=== PATIENT | male | born 1980 | race Caucasian/White ===

== ENCOUNTER 2017-02-09 19:04 | Emergency (ER) | payer BC, OTHER ==
[2017-02-09 20:00] VITALS: BP 152/66
[2017-02-09] MEDS ORDERED: DOXYcycline CAP(*) 100 MG PO ONE (20:53)
--- NOTE | 2017-02-09 20:57 | UC ---
Skin Complaint HPI - HPI Summary HPI Summary: Noticed tick on the back of L thigh this morning after returning from hunting. Has not removed it yet. Denies pain or itching at the area. - History of Current Complaint Chief Complaint: [facility] Time Seen by Provider: 02/09/17 20:32 Stated Complaint: TICK Hx Obtained From: Patient Skin Exposure Onset/Duration: Days Ago Timing: Constant Onset Severity: Mild Current Severity: Mild Location: Discrete Aggravating Factor(s): Nothing Alleviating Factor(s): Nothing Associated Signs & Symptoms: Positive: Negative Related History: Insect Bite/Sting - Allergy/Home Medications Home Medications: Home Medications Atorvastatin* [Lipitor 10 MG*] 10 mg PO DAILY 02/09/17 [History Confirmed ] Omeprazole CAP* [Prilosec CAP* 20 MG] 20 mg PO DAILY 02/09/17 [History Confirmed 02/09/17] Review of Systems Constitutional: Negative Skin: Other - tick Eyes: Negative ENT: Negative Respiratory: Negative Cardiovascular: Negative Gastrointestinal: Negative Genitourinary: Negative Motor: Negative Neurovascular: Negative Musculoskeletal: Negative Neurological: Negative Psychological: Negative Is Patient Immunocompromised?: No All Other Systems Reviewed And Are Negative: Yes PMH/Surg Hx/FS Hx/Imm Hx Endocrine History: Dyslipidemia GI/ History: Gastroesophageal Reflux - Surgical History Surgical History: Yes Surgery Procedure, Year, and Place: RIGHT KNEE SX X 2 - Family History Known Family History: Positive: Hypertension - Social History Occupation: Employed Full-time Lives: With Family Alcohol Use: Occasionally Substance Use Type: None Smoking Status (MU): Current Some Day Smoker Type: Cigars Length of Time of Smoking/Using Tobacco: 24 YRS Physical Exam Triage Information Reviewed: Yes Appearance: Well-Appearing, No Pain Distress, Well-Nourished Vital Signs: Initial Vital Signs Temp 98.3 F 02/09/17 19:53 Pulse 78 02/09/17 19:53 Resp 15 02/09/17 19:53 BP 152/66 02/09/17 19:53 Pulse Ox 99 02/09/17 19:53 Vital Signs Reviewed: Yes Eye Exam: Normal Eyes: Positive: Conjunctiva Clear ENT Exam: Normal ENT: Positive: Normal ENT inspection, Hearing grossly normal, Pharynx normal, TM dull Neck exam: Normal Respiratory Exam: Normal Respiratory: Positive: Chest non-tender, Lungs clear, Normal breath sounds, No respiratory distress, No accessory muscle use Cardiovascular Exam: Normal Cardiovascular: Positive: RRR, No Murmur Musculoskeletal Exam: Normal Neurological Exam: Normal Neurological: Positive: Alert Psychological Exam: Normal Skin Exam: Other - tick removed from L thigh with tick twister, tick was alive and whole, appeared engorged. Pt lilo well. No erythema, drainage, or streaking from the area. Course/Dx - Diagnoses Provider Diagnoses: Tick bite L thigh Discharge - Discharge Plan Condition: Stable Disposition: HOME Patient Education Materials: Tick Bite (ED) Referrals: Kasie Warren MD [Primary Care Provider] - Additional Instructions: If you develop any of the following, please see your physician promptly: (1) Fever, chills, or generalized malaise associated with a headache. (2) A red round area at the site of the bite (or elsewhere) (3) Joint pain, joint swelling or generalized weakness. (4) Redness, swelling, or drainage at the site of the bite. Check yourself, your children and your pets for ticks whenever you've been in an area where ticks live. To remove a tick, grasp it firmly with some tweezers or a string in a slipknot as close to its head as possible and pull it steadily. Ticks do not have a typical "head" attached to their body. There are mouth parts sticking out which they use to feed. If there are mouth parts left behind in the wound there is NO increased risk of Lyme infection; however, the chances of a bacterial skin infection (cellulitis) are higher. If mouth parts remain after tick removal, the best thing to do is apply warm soaks to the area 3-4 times per day to encourage the skin to expel the foreign material. DOXYCYCLINE: Doxycycline (Vibramycin, Doryx) is an antibiotic of the tetracycline family. This type of drug is useful for infections of the respiratory tract and genital tract, and is sometimes used for intestinal infections. Unlike most tetracyclines, doxycycline can be taken with food. It is longer acting, and (usually) less prone to side effects than regular tetracycline. Tetracycline antibiotics can stain immature teeth and SHOULD NOT BE TAKEN BY CHILDREN, NURSING MOTHERS, OR WOMEN. Tetracyclines can make you more prone to sunburn. Abdominal cramping, nausea, and diarrhea are occasional side effects. Women may experience vaginal yeast infections. Call the doctor at once if you develop hives, itching, shortness of breath , or lightheadedness. WHEN A TICK IS NOT ENGORGED AND HAS BEEN ON LESS THAN 24 HOURS - THE RISK FOR LYME IS NEGLIGIBLE. YOU CAN REMOVE THE TICK AND OBSERVE THE AREA ON YOUR OWN. FOLLOW-UP CARE: You should contact your private physician for follow-up care if you develop spreading redness near the site of the bite or on any other areas of the body. If you are unable to get a timely appointment, or if you are worsening, call us or return for re-evaluation.
== END 2017-02-09 21:02 | disposition home or self-care (01) ==
LOC: UCCORT 19:04
DX: S70.362A Insect bite (nonvenomous), left thigh, initial encounter (principal); W57.XXXA Bitten or stung by nonvenomous insect and other nonvenomous arthropods, initial encounter; Y93.89 Activity, other specified; Y92.821 Forest as the place of occurrence of the external cause; E78.5 Hyperlipidemia, unspecified; K21.9 Gastro-esophageal reflux disease without esophagitis; Z72.0 Tobacco use
CPT/HCPCS: 99212; A9270-GY; G0463

== ENCOUNTER 2017-10-05 16:35 | Emergency (ER) | payer BC, OTHER ==
--- OUTSIDE RECORDS SUMMARY | 2017-10-05 18:04 | XMS REPORT ---
:1980 External Reference #:[id number] Author Organization [facility] Address [address], [address] [place] [address] Phone [phone] Care Team Providers Name Role Phone Kasie Warren MD Primary Care Physician Unavailable Payers Type Date Identification Numbers Payment Provider Subscriber Commercial Policy Number: [id number] [facility] Freddie Rushing PayID: [id number] [address] [place] [address] Problems Date Description Provider Status Onset: 07/12/2014 Benign essential hypertension Alma Rosa Meadows M.D. Active Onset: 07/12/2014 Heartburn Alma Rosa Meadows M.D. Active Onset: 07/26/2014 Localized, primary osteoarthritis Kem Agudelo M.D. Active Onset: 12/21/2014 Mixed hyperlipidemia Alma Rosa Meadows M.D. Active Onset: 06/15/2017 Tobacco user Kasie Warren MD Active Onset: 06/15/2017 Obesity Kasie Warren MD Active Onset: 05/05/2017 Acute upper respiratory infection, Kasie Warren MD Active unspecified Onset: 07/12/2014 Arthralgia of the lower leg Alma Rosa Meadows M.D. Inactive Inactive: 02/12/2017 Onset: 07/12/2014 Obstructive sleep apnea syndrome Alma Rosa Meadows M.D. Inactive Inactive: 02/12/2017 Onset: 12/21/2014 Essential hypertension Alma Rosa Meadows M.D. Inactive Inactive: 02/12/2017 Onset: 01/04/2015 Essential hypertension Alma Rosa Meadows M.D. Inactive Inactive: 02/12/2017 Family History Date Family Member(s) Problem(s) Comments Father due to Cancer () Mother Cancer Social History Type Date Description Comments Marital Status Lives With Diet Patient follows no dietary restrictions Occupation Sales Occupation Academic Support Specialist Work Status Currently Working Cigarette Use 2013 Quit ETOH Use Currently consumes alcohol socially Smoking Patient is a former smoker cigars- end date Cigarettes- end date 2013 Recreational Drug Use Denies Drug Use Daily Caffeine Current Caffeine User Condom Use Never STD's No STD History Allergies, Adverse Reactions, Alerts Date Description Reaction Status Severity Comments 06/15/2017 Tamiflu active Rash on face 07/04/2014 NKDA inactive Medications Medication Date Status Form Strength Qnty SIG Indications Ordering Provider Fenofibrate 06/15/ Active Capsules 67mg 30caps 1 tab by Kasie Micronized 2017 mouth every Kelvin, day Amlodipine 02/11/ Active Tablets 5mg 30tabs 1 by mouth Kasie Besylate 2016 every day MD Kelvin Lactase Enzyme 01/16/ Active Tablets 9000Unit 90tabs 1 tab by Kasie Fast Acting 2015 mouth three Kelvin, times a day as needed with dairy containing meals Omeprazole 12/25/ Active Capsules 40mg 30caps 1 by mouth Kasie 2015 DR every day MD Kelvin Chantix 08/13/ Hx Tablets 1mg 60tabs 1 tab by Kasie 2017 - mouth twice Kelvin, 09/23/ a day 2018 Chantix 06/15/ Hx Tablets 0.5mg X 11 60tabs 0.5 mg once Kasie Starting 2017 - & 1 mg X daily days Earnest Warren 1-3, 0.5mg 2017 twice daily days 4-7, 1mg twice daily on day 8 Benzonatate 05/07/ Hx Capsules 100mg 30caps 1 tab by Kasie 2017 - mouth every Kelvin, 8 hours for 2017 cough Oseltamivir 05/05/ Hx Capsules 75mg 10caps 1 tab twice Kasie Phosphate 2017 - a day x 5 Kelvin, 06/15/ days 2017 Chantix 02/11/ Hx Tablets 0.5mg X 11 60tabs 0.5 mg once Kasie Starting 2016 - & 1 mg X daily days Kelvin, Earnest 1-3, 0.5mg MD 2017 twice daily days 4-7, 1mg twice daily on day 8 Terbinafine 08/27/ Hx Tablets 250mg 30tabs 1 tab by Kasie HCL 2017 - mouth daily Kelvin, 11/16/ for 4 2016 weeks. Fluconazole 08/14/ Hx Tablets 150mg 4tabs 1 tab by Kasie 2016 - mouth once Kelvin, 08/18/ weekly for MD 2016 4 weeks Terbinafine 08/11/ Hx Tablets 250mg 14tabs 1 tab by Kasie HCL 2017 - mouth daily Kelvin, 08/14/ for 2 2016 weeks. Probiotic 12/25/ Hx Capsules 30caps 1 tab by Kasie Acidophilus 2015 - mouth daily Kelvin, 01/16/ 2015 Levaquin 10/30/ Hx Tablets 500mg 7tabs 1 tab by Kasie 2015 - mouth daily Kelvin, 12/25/ for 7 days 2015 Mucinex DM 10/30/ Hx Tablets ER 30-600mg 30tabs 1 tab every Kasie 2016 - 12HR 12 hours as Kelvin, 12/25/ needed for MD 2016 cough/conge stion Ventolin HFA 10/30/ Hx Aerosol 108(90Base 8gm 1-2 puffs Kasie 2015 ) mcg/Act every 4-6 Kelvin, hours as MD needed for cough and shortness of breath Esomeprazole 07/26/ Hx Capsules 40mg 30caps take one R12 Kasie Magnesium 2014 - DR tab by Kelvin, 12/25/ mouth daily MD 2015 Atorvastatin 07/19/ Hx Tablets 20mg 30tabs 1 by mouth E78.2 Kasie Calcium 2014 - every day Kelvin, 06/15/ 2017 Nexium 07/12/ Hx Capsules 40mg 30caps 1 by mouth 787.1 Alma Rosa Faith - every day Dori 07/26/ Julieta 2014 No Active 07/04/ Hx Unknown Medications 2014 - 2014 Garcinia / Hx Tablets 500-200mg- Unknown Cambogia-Chrom 0000 - mcg ium 2015 Vital Signs Date Vital Result Comment 09/23/2017 BP Systolic Sitting Right Arm 123 mmHg BP Diastolic Sitting Right Arm 81 mmHg Body Temperature 98.1 F Heart Rate 68 /min Respiratory Rate 16 /min Height 73 inches 6'1" Weight 254.00 lb BMI (Body Mass Index) 33.5 kg/m2 BSA (Body Surface Area) 2.38 m2 [place] body weight in kilograms 83 O2 % BldC Oximetry 96 % 06/15/2017 BP Systolic Sitting Right Arm 130 mmHg BP Diastolic Sitting Right Arm 84 mmHg Heart Rate 94 /min Respiratory Rate 12 /min Height 73 inches 6'1" Weight 265.00 lb BMI (Body Mass Index) 35.0 kg/m2 BSA (Body Surface Area) 2.42 m2 [place] body weight in kilograms 83 05/05/2017 BP Systolic 156 mmHg BP Diastolic 85 mmHg Body Temperature 99.7 F Heart Rate 102 /min Respiratory Rate 14 /min Height 73 inches 6'1" Weight 259.25 lb BMI (Body Mass Index) 34.2 kg/m2 BSA (Body Surface Area) 2.40 m2 [place] body weight in kilograms 83 O2 % BldC Oximetry 95 % 02/11/2017 BP Systolic Sitting Right Arm 156 mmHg 144/86 recheck BP Diastolic Sitting Right Arm 92 mmHg 144/86 recheck Heart Rate 90 /min Respiratory Rate 18 /min Height 73 inches 6'1" Weight 255.00 lb BMI (Body Mass Index) 33.6 kg/m2 BSA (Body Surface Area) 2.39 m2 [place] body weight in kilograms 83 08/11/2016 BP Systolic 140 mmHg BP Diastolic 84 mmHg Heart Rate 76 /min Height 73 inches 6'1" Weight 247.00 lb BMI (Body Mass Index) 32.6 kg/m2 BSA (Body Surface Area) 2.35 m2 [place] body weight in kilograms 83 01/17/2016 BP Systolic Sitting Right Arm 128 mmHg BP Diastolic Sitting Right Arm 74 mmHg Height 73 inches 6'1" Weight 234.00 lb BMI (Body Mass Index) 30.9 kg/m2 BSA (Body Surface Area) 2.30 m2 12/26/2015 BP Systolic Lying Down Resting Right Arm 138 mmHg BP Diastolic Lying Down Resting Right Arm 82 mmHg Height 73 inches 6'1" Weight 237.12 lb BMI (Body Mass Index) 31.3 kg/m2 BSA (Body Surface Area) 2.31 m2 [place] body weight in kilograms 83 10/31/2015 BP Systolic 142 mmHg BP Diastolic 80 mmHg Body Temperature 99.6 F Heart Rate 86 /min Respiratory Rate 16 /min Height 73 inches 6'1" Weight 236.00 lb With Shoes BMI (Body Mass Index) 31.1 kg/m2 BSA (Body Surface Area) 2.31 m2 O2 % BldC Oximetry 97 % 08/23/2015 BP Systolic Sitting Resting Right Arm 142 mmHg BP Diastolic Sitting Resting Right Arm 90 mmHg Heart Rate 68 /min Height 73 inches 6'1" Weight 243.00 lb BMI (Body Mass Index) 32.1 kg/m2 BSA (Body Surface Area) 2.34 m2 01/04/2015 BP Systolic 132 mmHg BP Diastolic 72 mmHg Heart Rate 82 /min Respiratory Rate 18 /min Height 73 inches 6'1" Weight 240.00 lb BMI (Body Mass Index) 31.7 kg/m2 BSA (Body Surface Area) 2.32 m2 O2 % BldC Oximetry 97 % Ra 12/21/2014 BP Systolic 154 mmHg BP Diastolic 90 mmHg Height 73 inches 6'1" Weight 237.25 lb BMI (Body Mass Index) 31.3 kg/m2 BSA (Body Surface Area) 2.31 m2 07/26/2014 Height 73 inches 6'1" Weight 238.00 lb BMI (Body Mass Index) 31.4 kg/m2 BSA (Body Surface Area) 2.32 m2 07/12/2014 Heart Rate 71 /min Respiratory Rate 20 /min Height 73 inches 6'1" Weight 237.00 lb BMI (Body Mass Index) 31.3 kg/m2 BSA (Body Surface Area) 2.31 m2 O2 % BldC Oximetry 98 % Pain Level 0 Results Test Date Test Result H/L Range Note Comprehensive Metabolic Panel 09/16/2017 Glucose 106 mg/dL 74-106 1 BUN 21 mg/dL High 7-18 1 Creatinine 1.2 mg/dL 0.6-1.3 1 Glom Filtration Rate, Estimate >60 mL/min >60 1 If >60 mL/min >60 1, 2 BUN/Creat 17.5 ratio 1 Sodium 144 mmol/L 136-145 1 Potassium 5.0 mmol/L 3.5-5.1 1 Chloride 108 mmol/L High 98-107 1 Carbon Dioxide 26 mmol/L 21-32 1 Anion Gap 10 mEq/L 8-16 1 Calcium 9.2 mg/dL 8.5-10.1 1 Total Protein 7.2 g/dL 6.4-8.2 1 Albumin 4.1 g/dL 3.4-5.0 1 Globulin 3.1 g/dL 1.9-4.3 1 Alb/Glob 1.3 ratio 1 Bilirubin,Total 0.4 mg/dL 0.2-1.0 1 Sgot/Ast 21 U/L 15-37 1 SGPT/Alt 35 U/L 12-78 1 Alkaline Phosphatase 60 U/L 45-117 1 LDL Cholesterol Profile 09/16/2017 Cholesterol 185 mg/dL <200 1, 3 Triglycerides 204 mg/dL High <150 1, 4 HDL Cholesterol 36 mg/dL Low >40 1, 5 LDL-Cholesterol 108 mg/dL < 100 1, 6 Glycohemoglobin A1c 09/16/2017 Glycohemoglobin (A1c) 6.2 % 4.2-6.3 1, 7 eAG 131 mg/dL 1 Comprehensive Metabolic Panel 05/15/2017 Glucose 106 mg/dL 74-106 8 BUN 18 mg/dL 7-18 8 Creatinine 0.9 mg/dL 0.6-1.3 8 Glom Filtration Rate, Estimate >60 mL/min >60 8 If >60 mL/min >60 8, 9 BUN/Creat 20.0 ratio 8 Sodium 142 mmol/L 136-145 8 Potassium 4.4 mmol/L 3.5-5.1 8 Chloride 107 mmol/L 98-107 8 Carbon Dioxide 27 mmol/L 21-32 8 Anion Gap 8 mEq/L 8-16 8 Calcium 9.6 mg/dL 8.5-10.1 8 Total Protein 7.3 g/dL 6.4-8.2 8 Albumin 4.1 g/dL 3.4-5.0 8 Globulin 3.2 g/dL 1.9-4.3 8 Alb/Glob 1.3 ratio 8 Bilirubin,Total 0.4 mg/dL 0.2-1.0 8 Sgot/Ast 25 U/L 15-37 8 SGPT/Alt 55 U/L 12-78 8 Alkaline Phosphatase 76 U/L 45-117 8 CBS W/Automated Diff 05/15/2017 White Blood Count 6.3 K/uL 3.4-10.5 8 Red Blood Count 5.04 M/uL 4.20-5.80 8 Hemoglobin 15.6 gm/dL 12.8-17.0 8 Hematocrit 43.7 % 38.0-48.0 8 Mean Cell Volume 86.7 fl 80.0-96.0 8 Mean Corpuscular HGB 31.0 pg 27.0-33.0 8 Mean Corpuscular HGB Conc 35.7 g/dL 31.7-36.0 8 Platelet Count 217 K/uL 155-360 8 Red Cell Distri Width SD 37.6 fl 36-51 8 Red Cell Distri Width %CV 12.1 % 11.6-15.8 8 Mean Platelet Volume 11.0 fL High 6.6-10.6 8 Neut% 61.4 % 33.0-73.0 8 Lymph % 28.5 % 20.0-42.0 8 [place] % 8.5 % 0.0-10.0 8 Eo% 1.4 % 0.0-6.6 8 Bas% 0.2 % 0.0-1.1 8 Neut# 3.89 K/uL 1.8-7.0 8 Lymph # 1.81 K/uL 1.0-4.0 8 [place] # 0.54 K/uL 0.0-0.8 8 Eos # 0.09 K/uL 0.0-0.5 8 Baso # 0.01 K/uL 0.0-0.1 8 Glycohemoglobin A1c 05/15/2017 Glycohemoglobin (A1c) 6.1 % 4.2-6.3 8, 10 eAG 128 mg/dL 8 LDL Cholesterol Profile 05/15/2017 Cholesterol 152 mg/dL <200 8, 11 Triglycerides 413 mg/dL High <150 8, 12 HDL Cholesterol 35 mg/dL Low >40 8, 13 LDL-Cholesterol TNP mg/dL < 100 8, 14 Laboratory test finding 05/15/2017 Slide Review (SEE NOTE) 8, 15 Influenza A/B Antigen 05/05/2017 Influenza A Antigen Negative (Negative) 16 Influenza B Antigen Negative (Negative) 16, 17 Comprehensive Metabolic Panel 02/03/2017 Glucose 93 mg/dL 74-106 18 BUN 14 mg/dL 7-18 18 Creatinine 0.9 mg/dL 0.6-1.3 18 Glom Filtration Rate, Estimate >60 mL/min >60 18 If >60 mL/min >60 18, 19 BUN/Creat 15.5 ratio 18 Sodium 140 mmol/L 136-145 18 Potassium 4.0 mmol/L 3.5-5.1 18 Chloride 105 mmol/L 98-107 18 Carbon Dioxide 27 mmol/L 21-32 18 Anion Gap 8 mEq/L 8-16 18 Calcium 9.5 mg/dL 8.5-10.1 18 Total Protein 7.8 g/dL 6.4-8.2 18 Albumin 4.4 g/dL 3.4-5.0 18 Globulin 3.4 g/dL 1.9-4.3 18 Alb/Glob 1.3 ratio 18 Bilirubin,Total 0.3 mg/dL 0.2-1.0 18 Sgot/Ast 16 U/L 15-37 18 SGPT/Alt 49 U/L 12-78 18 Alkaline Phosphatase 84 U/L 45-117 18 LDL Cholesterol Profile 02/03/2017 Cholesterol 167 mg/dL <200 18, 20 Triglycerides 332 mg/dL High <150 18, 21 HDL Cholesterol 44 mg/dL >40 18, 22 LDL-Cholesterol 57 mg/dL < 100 18, 23 Laboratory test finding 07/18/2016 Slide Review (SEE NOTE) 24, 25 LDL Cholesterol Profile 07/18/2016 Cholesterol 147 mg/dL <200 24, 26 Triglycerides 168 mg/dL High <150 24, 27 HDL Cholesterol 43 mg/dL >40 24, 28 LDL-Cholesterol 70 mg/dL < 100 24, 29 CBS W/Automated Diff 07/18/2016 White Blood Count 6.1 K/uL 3.4-10.5 24 Red Blood Count 5.12 M/uL 4.20-5.80 24 Hemoglobin 15.6 gm/dL 12.8-17.0 24 Hematocrit 46.1 % 38.0-48.0 24 Mean Cell Volume 90.0 fl 80.0-96.0 24 Mean Corpuscular HGB 30.5 pg 27.0-33.0 24 Mean Corpuscular HGB Conc 33.8 g/dL 31.7-36.0 24 Platelet Count 191 K/uL 150-400 24 Red Cell Distri Width SD 41.3 fl 36-51 24 Red Cell Distri Width %CV 12.9 % 11.6-15.8 24 Mean Platelet Volume 11.1 fL High 6.6-10.6 24 Neut% 53.4 % 33.0-73.0 24 Lymph % 33.4 % 20.0-42.0 24 [place] % 9.4 % 0.0-10.0 24 Eo% 3.6 % 0.0-6.6 24 Bas% 0.2 % 0.0-1.1 24 Neut# 3.28 K/uL 1.8-7.0 24 Lymph # 2.05 K/uL 1.0-4.0 24 [place] # 0.58 K/uL 0.0-0.8 24 Eos # 0.22 K/uL 0.0-0.5 24 Baso # 0.01 K/uL 0.0-0.1 24 Comprehensive Metabolic Panel 07/18/2016 Glucose 105 mg/dL 74-106 24 BUN 14 mg/dL 7-18 24 Creatinine 1.0 mg/dL 0.6-1.3 24 Glom Filtration Rate, Estimate >60 mL/min >60 24 If >60 mL/min >60 24, 30 BUN/Creat 14.0 ratio 24 Sodium 142 mmol/L 136-145 24 Potassium 4.1 mmol/L 3.5-5.1 24 Chloride 108 mmol/L High 98-107 24 Carbon Dioxide 28 mmol/L 21-32 24 Anion Gap 6 mEq/L Low 8-16 24 Calcium 8.8 mg/dL 8.5-10.1 24 Total Protein 7.1 g/dL 6.4-8.2 24 Albumin 4.0 g/dL 3.4-5.0 24 Globulin 3.1 g/dL 1.9-4.3 24 Alb/Glob 1.3 ratio 24 Bilirubin,Total 0.4 mg/dL 0.2-1.0 24 Sgot/Ast 20 U/L 15-37 24 SGPT/Alt 48 U/L 12-78 24 Alkaline Phosphatase 77 U/L 45-117 24 Comprehensive Metabolic Panel 12/21/2015 Glucose 90 mg/dL 74-106 31 BUN 13 mg/dL 7-18 31 Creatinine 1.1 mg/dL 0.6-1.3 31 Glom Filtration Rate, Estimate >60 mL/min >60 31 If >60 mL/min >60 31, 32 BUN/Creat 11.8 ratio 31 Sodium 143 mmol/L 136-145 31 Potassium 3.9 mmol/L 3.5-5.1 31 Chloride 107 mmol/L 98-107 31 Carbon Dioxide 30 mmol/L 21-32 31 Anion Gap 6 mEq/L Low 8-16 31 Calcium 8.6 mg/dL 8.5-10.1 31 Total Protein 7.2 g/dL 6.4-8.2 31 Albumin 3.8 g/dL 3.4-5.0 31 Globulin 3.4 g/dL 1.9-4.3 31 Alb/Glob 1.1 ratio 31 Bilirubin,Total 0.3 mg/dL 0.2-1.0 31 Sgot/Ast 18 U/L 15-37 31 SGPT/Alt 44 U/L 12-78 31 Alkaline Phosphatase 70 U/L 45-117 31 Is Patient Fasting? Non-Fasting 31 LDL Cholesterol Profile 12/21/2015 Cholesterol 147 mg/dL <200 31, 33 Triglycerides 245 mg/dL High <150 31, 34 HDL Cholesterol 41 mg/dL >40 31, 35 LDL-Cholesterol 57 mg/dL < 100 31, 36 Is Patient Fasting? Non-Fasting 31 CBC W/Automated Diff 12/21/2015 White Blood Count 7.3 K/uL 3.4-10.5 31 Red Blood Count 4.76 M/uL 4.20-5.80 31 Hemoglobin 14.6 gm/dL 12.8-17.0 31 Hematocrit 42.4 % 38.0-48.0 31 Mean Cell Volume 89.1 fl 80.0-96.0 31 Mean Corpuscular HGB 30.7 pg 27.0-33.0 31 Mean Corpuscular HGB Conc 34.4 g/dL 31.7-36.0 31 Platelet Count 190 K/uL 150-400 31 Red Cell Distri Width SD 40.1 fl 36-51 31 Red Cell Distri Width %CV 12.5 % 11.6-15.8 31 Mean Platelet Volume 10.5 fL 6.6-10.6 31 Neut% 63.0 % 33.0-73.0 31 Lymph % 23.6 % 17.0-56.0 31 [place] % 9.9 % 0.0-10.0 31 Eo% 3.2 % 0.0-5.0 31 Bas% 0.3 % 0.1-1.0 31 Neut# 4.57 K/uL 1.8-7.0 31 Lymph # 1.71 K/uL Low 1.8-7.0 31 [place] # 0.72 K/uL 0.0-0.8 31 Eos # 0.23 K/uL 0.0-0.5 31 Baso # 0.02 K/uL Low 0.1-0.2 31 Urinalysis With Microscopic 07/12/2014 Urine Color YELLOW Yellow Urine Clarity CLEAR Clear Urine Glucose - Dipstick NEGATIVE mg/dL Negative Urine Bilirubin - Dipstick NEGATIVE Negative Urine Ketone NEGATIVE mg/dL Negative Urine Specific Harper 1.025 1.010-1.030 Urine Blood NEGATIVE Negative Urine PH 6.0 Low 6.5-7.5 Urine Protein - Dipstick NEGATIVE mg/dL Negative Urine Urobilinogen - Dipstick 0.2 E.U./dL 0.2-1.0 Urine Nitrite - Dipstick NEGATIVE Negative Urine Leuk Esterase NEGATIVE Negative Urine Microscopic <pending> Urine RBC 2-5 rbc/hpf 0-2 Urine WBC 0-2 wbc/hpf 0-7 Urine Epithelial Cells VERY FEW NONESEEN/lpf Urine Bacteria VERY FEW NONESEEN Urine Mucus MODERATE NONESEEN Laboratory test finding 07/12/2014 Antibody Detection See Note 37 Hepatitis Evaluation 07/12/2014 Hepatitis A Antibody Nonreactive Nonreactive 38 IgM Hepatitis B Surface Antigen Nonreactive Nonreactive 39 Hepatitis B Core IgM Nonreactive Nonreactive 40 Hepatitis C Antibody Nonreactive Nonreactive Signal/Cutoff ratio < 0.02 <0.80 41 CBC W/Automated Diff 07/12/2014 White Blood Count 5.9 K/uL 3.4-10.5 Red Blood Count 5.05 M/uL 4.20-5.80 Hemoglobin 15.6 gm/dL 12.8-17.0 Hematocrit 44.7 % 38.0-48.0 Mean Cell Volume 88.5 fl 80.0-96.0 Mean Corpuscular HGB 30.9 pg 27.0-33.0 Mean Corpuscular HGB Conc 34.9 g/dL 31.7-36.0 Platelet Count 205 K/uL 150-400 Red Cell Distri Width SD 39.4 fl 36-51 Red Cell Distri Width %CV 12.5 % 11.6-15.8 Mean Platelet Volume 10.5 fL 6.6-10.6 Neut% 61.1 % 33.0-73.0 Lymph % 28.6 % 17.0-56.0 [place] % 8.6 % 0.0-10.0 Eo% 1.4 % 0.0-5.0 Bas% 0.3 % 0.1-1.0 Neut# 3.61 K/uL 1.8-7.0 Lymph # 1.69 K/uL Low 1.8-7.0 [place] # 0.51 K/uL 0.0-0.8 Eos # 0.08 K/uL 0.0-0.5 Baso # 0.02 K/uL Low 0.1-0.2 Laboratory test finding 07/12/2014 TSH Reflex FT4 and/or 1.30 uIU/mL 0.36 -3.74 42 FT3 LDL Cholesterol Profile 07/12/2014 Cholesterol 190 mg/dL < 200 43 Triglycerides 253 mg/dL < 150 44 HDL Cholesterol 38 mg/dL > 40 45 LDL-Cholesterol 101 mg/dL < 100 46 Comprehensive Metabolic Panel 07/12/2014 Glucose 95 mg/dL 74-106 BUN 10 mg/dL 7-18 Creatinine 1.1 mg/dL 0.6-1.3 Glom Filtration Rate, Estimate >60 mL/min >60 If >60 mL/min >60 47 BUN/Creat 9.0 ratio Sodium 141 mmol/L 136-145 Potassium 4.2 mmol/L 3.5-5.1 Chloride 106 mmol/L 98-107 Carbon Dioxide 28 mmol/L 21-32 Anion Gap 7 mEq/L Low 8-16 Calcium 10.3 mg/dL High 8.5-10.1 Total Protein 7.7 g/dL 6.4-8.2 Albumin 4.2 g/dL 3.4-5.0 Globulin 3.5 g/dL 1.9-4.3 Alb/Glob 1.2 ratio Bilirubin,Total 0.5 mg/dL 0.2-1.0 Sgot/Ast 23 U/L 15-37 SGPT/Alt 55 U/L 12-78 Alkaline Phosphatase 75 U/L 45-117 1 E78.2 E66.09 2 Note: Persistent reduction for 3 months or more in an eGFR <60 mL/min/1.73 m2 defines CKD. Patients with eGFR values >/=60 mL/min/1.73 m2 may also have CKD if evidence of persistent proteinuria is present. The original MDRD equation for estimated GFR is not valid for patients less than 18 years of age. Additional information may be found at www.kdoqi.org. 3 Reference Guidelines*: Desirable: ........... < 200 mg/dL Borderline High: ..... 200-239 mg/dL High: ................ >=240 mg/dL * The National Cholesterol Education Program (NCEP) 4 Reference Guidelines*: Normal: ............. < 150 mg/dL Borderline High: .... 150-199 mg/dL High: ............... 200-499 mg/dL Very High: .......... > 500 mg/dL * Source: National Cholesterol Education Program (NCEP) 5 Reference Guidelines*: Low HDL: ..... < 40 mg/dL Normal: ..... 40-60 mg/dL Desirable: ... > 60 mg/dL *The National Cholesterol Education Program(NCEP) 6 Reference Guidelines*: Optimal:........... <100 mg/dL Near Optimal....... 100-129 mg/dL Borderline High.... 130-159 mg/dL High............... 160-189 mg/dL Very High.......... >=190 mg/dL * Source: National Cholesterol Education Program (NCEP) 7 Elevated levels of HbA1c suggest the need for more aggressive treatment of glycemia. The [place] [employer] recommends that a primary goal of therapy should be a HbA1c of <7% and that physicians should re-evaluate the treatment regimen in patients with HbA1c values consistently >8%. 8 I10 E78.2 9 Note: Persistent reduction for 3 months or more in an eGFR <60 mL/min/1.73 m2 defines CKD. Patients with eGFR values >/=60 mL/min/1.73 m2 may also have CKD if evidence of persistent proteinuria is present. The original MDRD equation for estimated GFR is not valid for patients less than 18 years of age. Additional information may be found at www.kdoqi.org. 10 Elevated levels of HbA1c suggest the need for more aggressive treatment of glycemia. The [place] [employer] recommends that a primary goal of therapy should be a HbA1c of <7% and that physicians should re-evaluate the treatment regimen in patients with HbA1c values consistently >8%. 11 Reference Guidelines*: Desirable: ........... < 200 mg/dL Borderline High: ..... 200-239 mg/dL High: ................ >=240 mg/dL * The National Cholesterol Education Program (NCEP) 12 Reference Guidelines*: Normal: ............. < 150 mg/dL Borderline High: .... 150-199 mg/dL High: ............... 200-499 mg/dL Very High: .......... > 500 mg/dL * Source: National Cholesterol Education Program (NCEP) 13 Reference Guidelines*: Low HDL: ..... < 40 mg/dL Normal: ..... 40-60 mg/dL Desirable: ... > 60 mg/dL *The National Cholesterol Education Program(NCEP) 14 (LDL CANNOT BE CALCULATED FOR TRIGS >400 mg/dL) 15 Instrument flagged sample for slide review. Less than 10% Bands seen, no other immature WBC's seen. RBC morphology essentially normal. Platelet estimate=NORMAL 16 J06.9 17 Please Note: A POSITIVE result for influenza A and/or B antigen does not rule out a co-infection with other pathogens or identify any specific influenza A virus subtype. A NEGATIVE result for influenza A and/or B antigen does not preclude influenza virus infection and should not be the sole basis for treatment or other management decisions, since the antigen present in the specimen may be below the detection limit of the test. A NEGATIVE result is PRESUMPTIVE and it is recommended these results be confirmed by virus culture or an FDA-cleared influenza A and B molecular assay. Method: [employer]Click[employer] Chromatographic immunoassay 18 E78.2,I10 19 Note: Persistent reduction for 3 months or more in an eGFR <60 mL/min/1.73 m2 defines CKD. Patients with eGFR values >/=60 mL/min/1.73 m2 may also have CKD if evidence of persistent proteinuria is present. The original MDRD equation for estimated GFR is not valid for patients less than 18 years of age. Additional information may be found at www.kdoqi.org. 20 Reference Guidelines*: Desirable: ........... < 200 mg/dL Borderline High: ..... 200-239 mg/dL High: ................ >=240 mg/dL * The National Cholesterol Education Program (NCEP) 21 Reference Guidelines*: Normal: ............. < 150 mg/dL Borderline High: .... 150-199 mg/dL High: ............... 200-499 mg/dL Very High: .......... > 500 mg/dL * Source: National Cholesterol Education Program (NCEP) 22 Reference Guidelines*: Low HDL: ..... < 40 mg/dL Normal: ..... 40-60 mg/dL Desirable: ... > 60 mg/dL *The National Cholesterol Education Program(NCEP) 23 Reference Guidelines*: Optimal:........... <100 mg/dL Near Optimal....... 100-129 mg/dL Borderline High.... 130-159 mg/dL High............... 160-189 mg/dL Very High.......... >=190 mg/dL * Source: National Cholesterol Education Program (NCEP) 24 E78.2 I10 K58.0 25 Instrument flagged sample for slide review. Less than 10% Bands seen, no other immature WBC's seen. RBC morphology essentially normal. Platelet estimate=NORMAL 26 Reference Guidelines*: Desirable: ........... < 200 mg/dL Borderline High: ..... 200-239 mg/dL High: ................ >=240 mg/dL * The National Cholesterol Education Program (NCEP) 27 Reference Guidelines*: Normal: ............. < 150 mg/dL Borderline High: .... 150-199 mg/dL High: ............... 200-499 mg/dL Very High: .......... > 500 mg/dL * Source: National Cholesterol Education Program (NCEP) 28 Reference Guidelines*: Low HDL: ..... < 40 mg/dL Normal: ..... 40-60 mg/dL Desirable: ... > 60 mg/dL *The National Cholesterol Education Program(NCEP) 29 Reference Guidelines*: Optimal:........... <100 mg/dL Near Optimal....... 100-129 mg/dL Borderline High.... 130-159 mg/dL High............... 160-189 mg/dL Very High.......... >=190 mg/dL * Source: National Cholesterol Education Program (NCEP) 30 Note: Persistent reduction for 3 months or more in an eGFR <60 mL/min/1.73 m2 defines CKD. Patients with eGFR values >/=60 mL/min/1.73 m2 may also have CKD if evidence of persistent proteinuria is present. The original MDRD equation for estimated GFR is not valid for patients less than 18 years of age. Additional information may be found at www.kdoqi.org. 31 E78.2 I10 32 Note: Persistent reduction for 3 months or more in an eGFR <60 mL/min/1.73 m2 defines CKD. Patients with eGFR values >/=60 mL/min/1.73 m2 may also have CKD if evidence of persistent proteinuria is present. The original MDRD equation for estimated GFR is not valid for patients less than 18 years of age. Additional information may be found at www.kdoqi.org. 33 Reference Guidelines*: Desirable: ........... < 200 mg/dL Borderline High: ..... 200-239 mg/dL High: ................ >=240 mg/dL * The National Cholesterol Education Program (NCEP) 34 Reference Guidelines*: Normal: ............. < 150 mg/dL Borderline High: .... 150-199 mg/dL High: ............... 200-499 mg/dL Very High: .......... > 500 mg/dL * Source: National Cholesterol Education Program (NCEP) 35 Reference Guidelines*: Low HDL: ..... < 40 mg/dL Normal: ..... 40-60 mg/dL Desirable: ... > 60 mg/dL *The National Cholesterol Education Program(NCEP) 36 Reference Guidelines*: Optimal:........... <100 mg/dL Near Optimal....... 100-129 mg/dL Borderline High.... 130-159 mg/dL High............... 160-189 mg/dL Very High.......... >=190 mg/dL * Source: National Cholesterol Education Program (NCEP) 37 No reportable results 38 IgM antibodies to HAV not detected; does not exclude early acute or recovered HAV infection. 39 HBsAg not detected; does not exclude the possibility of exposure to or early acute infections with HBV. 40 IgM anti-HBc not detected. Does not exclude the possibility of exposure to or infection with HBV. 41 Antibodies to HCV not detected; does not exclude early acute HCV infection. 42 QUERY: Reflex add FT3? N QUERY: Reflex add FT4? Y 43 Reference Guidelines*: Desirable: ........... < 200 mg/dL Borderline High: ..... 200-239 mg/dL High: ................ >=240 mg/dL * The National Cholesterol Education Program (NCEP) 44 Reference Guidelines*: Normal: ............. < 150 mg/dL Borderline High: .... 150-199 mg/dL High: ............... 200-499 mg/dL Very High: .......... > 500 mg/dL * Source: National Cholesterol Education Program (NCEP) 45 Reference Guidelines*: Low HDL: ..... < 40 mg/dL Normal: ..... 40-60 mg/dL Desirable: ... > 60 mg/dL *The National Cholesterol Education Program(NCEP) 46 Reference Guidelines*: Optimal:........... <100 mg/dL Near Optimal....... 100-129 mg/dL Borderline High.... 130-159 mg/dL High............... 160-189 mg/dL Very High.......... >=190 mg/dL * Source: National Cholesterol Education Program (NCEP) 47 Note: Persistent reduction for 3 months or more in an eGFR <60 mL/min/1.73 m2 defines CKD. Patients with eGFR values >/=60 mL/min/1.73 m2 may also have CKD if evidence of persistent proteinuria is present. The original MDRD equation for estimated GFR is not valid for patients less than 18 years of age. Additional information may be found at www.kdoqi.org. Procedures Date CPT Code Description Status 10/31/2015 34582 Pressurized/Non-Pressurized Inhalation Treatment,Acute Completed Obstructio 08/23/2015 03786 EKG-Tracing And Report Completed 07/26/2014 03089 X-Ray Knee Complete W/Obliques & Tunnel And/Or Standing Completed Views Encounters Type Date Location Provider CPT E/M Dx Office Visit 06/15/2017 3:40p [place] [address] E66.09 I10 E78.2 F17.200 Office Visit 05/05/2017 11:15a [place] [address] J06.9 Office Visit 02/11/2017 3:20p [place] [address] I10 E78.2 E66.09 F17.200 Office Visit 08/11/2016 2:00p [place] [address] B35.3 I10 E78.2 Office Visit 01/17/2016 3:40p [place] [address] K58.0 I10 E78.2 Office Visit 12/26/2015 3:40p [place] [address] E78.2 I10 K58.0 Office Visit 10/31/2015 11:20a [place] [address] J06.9 Office Visit 08/23/2015 2:40p [place] [address] E78.2 I10 M17.11 Office Visit 01/04/2015 3:50p Primary Care Office Alma Rosa Meadows M.D. 16411 I10 E78.2 Office Visit 12/21/2014 3:50p Primary Care Office Alma Rosa Meadows M.D. 06207 I10 E78.2 M17.11 Office Visit 07/26/2014 9:00a Primary Care Office Alma Rosa Meadows M.D. 22650 719.46 401.1 787.1 Office Visit 07/26/2014 10:00a Orthopaedic Office Kem Agudelo M.D. 23247 715.16 719.46 Office Visit 07/12/2014 10:05a [facility] Office Alma Rosa Meadows M.D. 11127 401.1 719.46 327.23 787.1 Plan of Care Future Appointment(s):03/19/2018 8:30 am - Wire Wheeler at [facility] Nay[place]ug3203/26 3:00 pm - Kasie Warren MD at [facility] [id number]/23/2017 - Kasie Warren MDI10 Essential (primary) hypertensionComments:-goal BP of <130/80- Stage 2 HTN and improved with medication and weight loss-advised patient to follow a low sat diet, exercise and weight loss -Continue Amlodipine 5mg fjtisH37.09 Other obesity due to excess caloriesComments:-Advised patient needs to lose another 20lbs before next visit -has lost 11 lbs-weight loss important for BP control, cholesterol and prevent DM-Check hgbA1c before next cyrylB49.2 Mixed hyperlipidemiaNew Labs:Comprehensive Metabolic PanelLDL Cholesterol ProfileComments:-lipid panel last visit showed high triglycides of 413 range and LDL not able to be calculated-Stopped statin, start fenofibrate and now triglycerides 204-Discussed diet, weight loss and exercise-Cut down on sugar, baked goods and kaqdefimnwpddQ27.9 Hyperglycemia, unspecifiedComments:-check hgbA1c before next visit-Continue exercise and dietAllFollow up:RTO 6 months Fasting blood work Lipid panel, HgA1c tdap in October, nurse visit
[2017-10-05 18:12] VITALS: BP 137/72
[2017-10-05] MEDS ORDERED: Acetaminophen TAB* 325 MG PO ONE (18:24)
--- NOTE | 2017-10-05 18:38 | ED ---
Abdominal Pain/Male - HPI Summary HPI Summary: 37 yr old male with the complaint of low abdominal cramping, diarrhea multiple times over the past 30 hours, and fever, chills. He states [facility] [place] [facility] Thursday and 24 hours later developed chills, diarrhea and his present symptoms. He feels weak and tired. No syncope, no dizziness. Cramps in abdomen come on just prior to diarrhea. last Diarrhea at home prior to coming here. - History of Current Complaint Chief Complaint: UCGI Stated Complaint: DIARRHEA Time Seen by Provider: 10/05/17 18:18 Pain Intensity: 5 - Allergies/Home Medications Allergies/Adverse Reactions: Allergies Allergy/AdvReac Type Severity Reaction Status Date / Time No Known Allergies Allergy Verified 10/05/17 18:04 Home Medications: Home Medications Bp Med 1 tab PO DAILY 10/05/17 [History Confirmed 10/05/17] PMH/Surg Hx/FS Hx/Imm Hx Previously Healthy: Yes Cardiovascular History: Reports: Hx Hypertension - Surgical History Surgery Procedure, Year, and Place: RIGHT KNEE SX X 2 Infectious Disease History: No Infectious Disease History: Denies: Traveled Outside the [place] in Last 30 Days - Family History Known Family History: Positive: Hypertension - Social History Alcohol Use: Occasionally Substance Use Type: Reports: None Smoking Status (MU): Former Smoker Type: Cigars Length of Time of Smoking/Using Tobacco: 24 YRS Review of Systems Positive: Fever, Chills Positive: Diarrhea. Negative: Vomiting, Nausea All Other Systems Reviewed And Are Negative: Yes Physical Exam Triage Information Reviewed: Yes Vital Signs On Initial Exam: Initial Vitals Temp Pulse Resp BP Pulse Ox 100.3 F 114 14 137/72 96 10/05/17 18:07 10/05/17 18:07 10/05/17 18:07 10/05/17 18:07 10/05/17 18:07 Vital Signs Reviewed: Yes Appearance: Positive: No Pain Distress, Well-Nourished Skin: Positive: Warm, Skin Color Reflects Adequate Perfusion Head/Face: Positive: Normal Head/Face Inspection Eyes: Positive: EOMI ENT: Positive: Pharynx normal Neck: Positive: Nontender Respiratory/Lung Sounds: Positive: Clear to Auscultation, Breath Sounds Present Cardiovascular: Positive: RRR. Negative: Murmur Abdomen Description: Positive: Nontender. Negative: Distended Musculoskeletal: Positive: Strength/ROM Intact Neurological: Positive: Sensory/Motor Intact, Alert, Oriented to Person Place, Time, CN Intact II-III Psychiatric: Positive: Normal - [place] Coma Scale Best Eye Response: 4 - Spontaneous Best Motor Response: 6 - Obeys Commands Best Verbal Response: 5 - Oriented Coma Scale Total: 15 Diagnostics - Vital Signs Vital Signs Temp Pulse Resp BP Pulse Ox 10/05/17 18:07 100.3 F 114 14 137/72 96 - Laboratory Lab Statement: Any lab studies that have been ordered have been reviewed, and results considered in the medical decision making process. Abdominal Pain Fem Course/Dx - Course Course Of Treatment: 37 yr old with possible food born illness. His is driving him to [facility] ER for further evaluation. He has declined an ambulance transfer. - Diagnoses Provider Diagnoses: Diarrhea Discharge - Sign-Out/Discharge Documenting (check all that apply): Discharge/Admit/Transfer - Discharge Plan Condition: Good Disposition: TRANS HIGHER LVL OF CARE FAC Patient Education Materials: Acute Diarrhea (ED), Fever in Adults (ED) Referrals: Kasie Warren MD [Primary Care Provider] - Additional Instructions: You need to immediately go to [place] [facility] upon leaving here. You state your is driving you, and you have declined an ambulance transfer. This could delay your care and diagnosis not taking an ambulance. - Billing Disposition and Condition Condition: GOOD Disposition: Trans Higher Lvl of Care Fac
== END 2017-10-05 18:48 | disposition short-term general hospital (02) ==
LOC: UCCORT 16:35
DX: R19.7 Diarrhea, unspecified (principal); I10 Essential (primary) hypertension
CPT/HCPCS: 99212; A9270-GY; G0463